=== PATIENT | female | born 1955 | race Caucasian/White ===

== ENCOUNTER → 2021-03-02 | Outpatient (CLI) | payer BC ==
--- NOTE | 2021-03-02 11:33 | CT ---
EXAMINATION TYPE: CT angio chest DATE OF EXAM: 03/02/2021 COMPARISON: None HISTORY: Cough, chest pain, shortness of breath. CT DLP: 231.2 mGycm CONTRAST: CT chest with contrast and 3D reconstruction with MIP imaging is performed with IV Contrast, patient injected with 100 mL of Isovue 370. Contrast-enhanced CT of the chest was performed through the course of the pulmonary arteries with barb g and mediastinal window settings submitted. 3D reconstruction with MIP imaging was also performed. PULMONARY ARTERIES: The pulmonary arteries and their major tributaries are patent. I do not see favian dence for sizable filling defect to suggest pulmonary embolic process. LUNGS: The lungs are clear and free of infiltrate. No evidence for atelectasis. No pulmonary nodule or mass is detected. No pleural effusion. MEDIASTINUM: Thoracic aorta is of normal caliber,however, evaluation is limited given timing of the contrast bolus. If there is concern for thoracic aortic pathology consider SARBJIT. Correlate clinicall y . The heart is not enlarged. No evidence for mediastinal mass. No mediastinal lymph nodes greater than 1cm. HILAR STRUCTURES: No evidence for mass. No hilar lymph nodes greater than 1 cm. UPPER ABDOMEN: No significant abnormality is seen. IMPRESSION: 1. No evidence for Pulmonary embolism at this time.
[2021-03-02 11:49] LABS: HCT 45.3 % (34.0-46.0); MCH 29.8 pg (25.0-35.0); MCV 90.4 fL (80.0-100.0); Mean Platelet Volume 7.6; Platelet Count 279 k/uL (150-450); RBC 5.01 m/uL (3.80-5.40); RDW 13.4 % (11.5-15.5); WBC 18.1 k/uL (3.8-10.6)
[2021-03-02 11:59] LABS: ALT 10 U/L (4-34); AST 13 U/L (14-36); African American GFR (CKD) >90 (>60 ml/min/1.73 sqM); Albumin 3.8 g/dL (3.5-5.0); Alkaline Phosphatase 83 U/L (38-126); Anion Gap 5 mmol/L; Blood Urea Nitrogen 11 mg/dL (7-17); Calcium 9.5 mg/dL (8.4-10.2); Carbon Dioxide 29 mmol/L (22-30); Chloride 105 mmol/L (98-107); Glucose 107 mg/dL (74-99); Non-African American GFR(CKD) >90 (>60 ml/min/1.73 sqM); Potassium 3.4 mmol/L (3.5-5.1); Sodium 139 mmol/L (137-145); Total Bilirubin 0.4 mg/dL (0.2-1.3); Total Protein 6.2 g/dL (6.3-8.2)
[2021-03-02 21:05] LABS: Ferritin 57.6 ng/mL (10.0-291.0)
== END | disposition home or self-care (01) ==
LOC: RADCTMAIN 10:28
PROVIDERS: ATTEND Family Medicine
DX: R05 Cough (principal); R07.9 Chest pain, unspecified; R06.02 Shortness of breath
CPT/HCPCS: 85379; 83880; 80053; 82728; 82553; 84443; 85027; 71275; Q9967

== ENCOUNTER 2022-05-08 09:20 | Day surgery (SDC) | payer BC, MEDICARE ==
[2022-05-07 09:32] VITALS: BMI 25.7
[~2022-05-08 09:20] MED LIST: LACTATED RINGERS 1,000 ML IV SCH
[2022-05-08 10:08] VITALS: RESP 16; TEMP 97.4
[2022-05-08] MEDS ORDERED: LIDOCAINE 1% (10MG/ML) FOR IV START INTRADERMA ONE (10:09)
[2022-05-08] MEDS ORDERED: LIDOCAINE 2% INJ 20 MG/ML (2 ML VIAL) ONE (10:44)
[2022-05-08] MEDS ORDERED: PROPOFOL 10 MG/ML 20 ML VIAL IV ONE (10:44)
--- NOTE | 2022-05-08 11:00 | P.PCN ---
Date of Procedure: 05/08/22 Procedure(s) Performed: BRIEF HISTORY: Patient is a 66-year-old, pleasant, white female scheduled for an upper endoscopy as a part of evaluation of chronic cough for the last 1-1/2 years duration. She denies any heartburn. She tried omeprazole 20 mg daily. PROCEDURE PERFORMED: Esophagogastroduodenoscopy with biopsy. PREOPERATIVE DIAGNOSIS: Chronic cough. IV sedation per anesthesia. PROCEDURE: After informed consent was obtained, the patient was brought into the endoscopy unit. IV sedation was administered by Anesthesia under continuous monitoring. Initially the Olympus GIF-140 video endoscope was inserted into the mouth. Esophagus intubated without any difficulty. It was gradually advanced into the stomach and duodenum and carefully examined. The bulb and the second part of the duodenum appeared normal. The scope at this time was withdrawn to the stomach, adequately insufflated with air, and upon careful examination, mucosa of the antrum, had mild antral gastritis and biopsies were done from this area. The body, cardia and the fundus appeared normal. The scope was then withdrawn into the esophagus. The GE junction was located at 39 cm from the incisors. The esophagus appeared normal. There were no erosions or ulcerations seen, biopsies were done from the distal esophagus and the patient tolerated the procedure well. IMPRESSION: 1. Normal-appearing esophagus with no evidence of esophagitis or hiatal hernia. 2. Mild antral gastritis. RECOMMENDATIONS: The findings of this examination were discussed with the patient as well as a family. She was advised to follow with the biopsy results. If the biopsies show any evidence of microscopic reflux esophagitis, she can be given a trial of aggressive acid suppressive therapy with Prilosec 20 mg twice daily half hour before breakfast and dinnertime and follow antireflux measures for at least 3 months. If there is no evidence of esophagitis, she can be evaluated by ENT/pulmonary to rule out other etiologies.
[2022-05-08 11:18] VITALS: BP 121/61; PULSE 55
== END 2022-05-08 11:54 | disposition home or self-care (01) ==
LOC: ORWHC2ENDO 09:20
PROVIDERS: ATTEND Internal Medicine Gastroenterology
DX: K29.50 Unspecified chronic gastritis without bleeding (principal); K21.00 Gastro-esophageal reflux disease with esophagitis, without bleeding; R05.3 Chronic cough
CPT/HCPCS: 88305; 43239; J2704; J2001